=== PATIENT | male | born 1960 | race Caucasian/White ===

== ENCOUNTER → 2017-01-20 | Outpatient (REF) | payer BC | LOC: M LAB REF 12:18 | PROVIDERS: ATTEND Internal Medicine | DX: R73.01 Impaired fasting glucose (principal); B27.90 Infectious mononucleosis, unspecified without complication; E63.9 Nutritional deficiency, unspecified ==

== ENCOUNTER → 2017-03-12 | Outpatient (REF) | payer BC | LOC: M LAB REF 16:40 | PROVIDERS: ATTEND Physician Assistant Medical | DX: J02.9 Acute pharyngitis, unspecified (principal) ==

== ENCOUNTER → 2017-03-16 | Outpatient (REF) | payer BC | LOC: M LAB REF 17:01 | PROVIDERS: ATTEND Nurse Practitioner Family | DX: K12.1 Other forms of stomatitis (principal) ==

== ENCOUNTER → 2017-06-07 | Outpatient (REF) | payer BC | LOC: M LAB REF 13:25 | PROVIDERS: ATTEND Internal Medicine | DX: B27.90 Infectious mononucleosis, unspecified without complication (principal) ==

== ENCOUNTER → 2018-03-02 | Outpatient (REF) | payer BC | LOC: M LAB REF 16:11 | DX: R31.0 Gross hematuria (principal) | CPT/HCPCS: 88108 ==

== ENCOUNTER → 2018-06-08 | Outpatient (REF) | payer BC ==
[2018-06-10 00:06] LABS: EBV VIRAL CAPSID AG IgM <36.0 U/mL (0.0-35.9)
== END ==
LOC: M LAB REF 13:29
DX: B27.90 Infectious mononucleosis, unspecified without complication (principal)

== ENCOUNTER → 2019-06-21 | Outpatient (REF) | payer BC | LOC: M LAB REF 10:48 | PROVIDERS: ATTEND Internal Medicine | DX: R10.84 Generalized abdominal pain (principal) ==

== ENCOUNTER → 2021-07-06 | Outpatient (REF) | payer BC | LOC: M LAB REF 19:43 | PROVIDERS: ATTEND Physician Assistant Medical | DX: R50.9 Fever, unspecified (principal) ==

== ENCOUNTER 2021-07-08 09:10 | Emergency (ER) | payer BC ==
[~2021-07-08] VITALS: Ht 175.3 cm; Wt 78.5 kg
[2021-07-08] MEDS ORDERED: FAMOTIDINE INJ 20MG/2ML VIAL (S0028 PER 1) IVP ONE (11:20)
[2021-07-08] MEDS ORDERED: diphenhydrAMINE 50MG/ML VIAL (J1200) IV ONE (11:20)
[2021-07-08] MEDS ORDERED: NS 1,000 ML IV ONE (11:20)
[2021-07-08] MEDS ORDERED: methylPREDNISolone 125MG 2ML VIAL IV ONE (11:20)
[2021-07-08 11:55] LABS: HEMATOCRIT 44.3 % (42.0-52.0); HEMOGLOBIN 14.7 g/dl (13.5-17.5); MEAN CORPUSCULAR HEMOGLOBIN 29.1 pg (27.0-33.0); MEAN CORPUSCULAR HGB CONC 33.2 g/dl (32.0-36.5); MEAN CORPUSCULAR VOLUME 87.7 fl (80.0-96.0); PLATELET COUNT, AUTOMATED 135 10^3/uL (150-450); RED BLOOD COUNT 5.05 10^6/uL (4.30-6.10); WHITE BLOOD COUNT 3.8 10^3/uL (4.0-10.0)
[2021-07-08 12:13] LABS: ERYTHROCYTE SEDIMENTATION RATE 12 mm/hr (0-20)
[2021-07-08 12:21] LABS: MONO REFLEX EBV COMP NEGATIVE (NEGATIVE)
[2021-07-08 12:26] LABS: ATYPICAL LYMPH 6 % (0-5); BASOPHILS 1 % (0-1); EOSINOPHILS 2 % (0-3); LYMPHOCYTES 19 % (16-44); MONOCYTES 1 % (0-5); NEUTROPHILS 44 % (28-66)
[2021-07-08 12:27] VITALS: BP 129/79
[2021-07-08 12:27] LABS: PLATELET ESTIMATE DECREASED (NORMAL)
[2021-07-08 12:29] LABS: RSV AMPLIFICATION NEGATIVE (NEGATIVE)
[2021-07-08 12:39] LABS: ALT/SGPT 138 U/L (12-78); BILIRUBIN,DIRECT 0.2 MG/DL (0.0-0.2); BILIRUBIN,TOTAL 0.5 MG/DL (0.2-1.0); BLOOD UREA NITROGEN 12 MG/DL (7-18); C REACTIVE PROTEIN QUANTITATIV 9.65 MG/DL (0.00-0.30); CALCIUM LEVEL 8.3 MG/DL (8.8-10.2); CARBON DIOXIDE LEVEL 30 MEQ/L (21-32); CHLORIDE LEVEL 105 MEQ/L (98-107); CREATININE FOR GFR 0.94 MG/DL (0.70-1.30); GLOMERULAR FILTRATION RATE > 60.0 (>49); GLUCOSE, FASTING 102 MG/DL (70-100); POTASSIUM SERUM 4.4 MEQ/L (3.5-5.1); SODIUM LEVEL 138 MEQ/L (136-145); TOTAL PROTEIN 6.1 GM/DL (6.4-8.2)
[2021-07-08] MEDS ORDERED: DOXY1CAP62 PO (13:12)
== END 2021-07-08 13:30 | disposition home or self-care (01) ==
LOC: M ED 09:10
DX: L50.9 Urticaria, unspecified (principal); R50.9 Fever, unspecified; M25.50 Pain in unspecified joint; D69.6 Thrombocytopenia, unspecified; B27.80 Other infectious mononucleosis without complication; Z86.19 Personal history of other infectious and parasitic diseases
CPT/HCPCS: 36415; 80048; 80076; 85025; 85652; 86140; 86308; 86617; 86664; 86665; 86757; 87207; 87631; 87798; 96374; 96375; 99284; J1200; J2930

== ENCOUNTER 2021-07-14 17:02 | Observation (INO) | payer BC ==
[~2021-07-14] VITALS: Ht 175.3 cm; Wt 76.8 kg
[~2021-07-14 17:02] MED LIST: DOXY1CAP62 PO
[2021-07-14] MEDS ORDERED: PRED10TA2 (17:15)
--- NOTE | 2021-07-14 17:46 | REP ---
INDICATION: CHEST PAIN. COMPARISON: Comparison chest x-ray October 30, 2015. TECHNIQUE: Portable upright AP chest radiograph. FINDINGS: The lungs are well inflated and free of infiltrate. Pleural angles are sharp. Heart size is normal. Pulmonary vasculature is not increased. EKG monitoring electrodes overlie the chest. IMPRESSION: No active disease. <Electronically signed by Judson Augustin > 07/14/21 [id number]
[2021-07-14 17:47] LABS: BASO % 0.5 % (0.0-1.0); EOS # 0.1 10^3/uL (0.0-0.5); EOS % 1.7 % (0.0-3.0); HEMATOCRIT 42.2 % (42.0-52.0); HEMOGLOBIN 14.6 g/dl (13.5-17.5); LYMPH # 1.2 10^3/uL (1.5-5.0); LYMPH % 13.7 % (24.0-44.0); MEAN CORPUSCULAR HEMOGLOBIN 29.3 pg (27.0-33.0); MEAN CORPUSCULAR HGB CONC 34.6 g/dl (32.0-36.5); MEAN CORPUSCULAR VOLUME 84.6 fl (80.0-96.0); MONO # 0.5 10^3/uL (0.0-0.8); MONO % 5.4 % (2.0-8.0); NEUTROPHILS # 6.5 10^3/uL (1.5-8.5); NEUTROPHILS % 77.7 % (36.0-66.0); PLATELET COUNT, AUTOMATED 365 10^3/uL (150-450); RED BLOOD COUNT 4.99 10^6/uL (4.30-6.10); WHITE BLOOD COUNT 8.4 10^3/uL (4.0-10.0)
[2021-07-14 18:25] LABS: ALBUMIN 2.8 GM/DL (3.2-5.2); ALT/SGPT 60 U/L (12-78); BILIRUBIN,DIRECT 0.2 MG/DL (0.0-0.2); BILIRUBIN,TOTAL 0.5 MG/DL (0.2-1.0); BLOOD UREA NITROGEN 21 MG/DL (7-18); CALCIUM LEVEL 8.1 MG/DL (8.8-10.2); CARBON DIOXIDE LEVEL 27 MEQ/L (21-32); CHLORIDE LEVEL 101 MEQ/L (98-107); CPK CREATINE PHOSPHOKINASE 25 U/L (39-308); CREATININE FOR GFR 0.81 MG/DL (0.70-1.30); GLOMERULAR FILTRATION RATE > 60.0 (>49); GLUCOSE, FASTING 121 MG/DL (70-100); LIPASE 56 U/L (73-393); NT-PRO BNP 41 PG/ML (<125); POTASSIUM SERUM 4.2 MEQ/L (3.5-5.1); SODIUM LEVEL 135 MEQ/L (136-145); THYROID STIMULATING HORMONE 0.512 uIU/ML (0.358-3.740); TOTAL PROTEIN 6.2 GM/DL (6.4-8.2); TROPONIN I < 0.02 NG/ML (< 0.10)
[2021-07-14] MEDS ORDERED: ASPIRIN 81 MG CHEW TABLET PO ONE (18:40)
[2021-07-14] MEDS ORDERED: ISOVUE-370 76% 100ML VIAL As Ordered ONE (18:46)
[2021-07-14] MEDS: NITROGLYCERIN 0.4 MG SUBL TABLET SL PRN ×3 (19:05→19:40)
[2021-07-14] MEDS ORDERED: METOCLOPRAMIDE INJ 10MG/2ML VIAL (J2765 PER 1) As Ordered ONE (19:17)
[2021-07-14] MEDS ORDERED: METOCLOPRAMIDE INJ 10MG/2ML VIAL (J2765 PER 1) IV ONE (19:20)
[2021-07-14 19:40] VITALS: BP 111/61
--- NOTE | 2021-07-14 20:42 | REPVR ---
PROCEDURE INFORMATION: Exam: CTA Chest With Contrast Exam date and time: 07/14/2021 7:33 PM Age: 61 years old Clinical indication: Shortness of breath; Additional info: Chest pain SOB TECHNIQUE: Imaging protocol: Computed tomographic angiography of the chest with contrast. 3D rendering (Not supervised by radiologist): MIP and/or 3D reconstructed images were created by the technologist. Radiation optimization: All CT scans at this facility use at least one of these dose optimization techniques: automated exposure control; mA and/or kV adjustment per patient size (includes targeted exams where dose is matched to clinical indication); or iterative reconstruction. Contrast material: ISOVUE 370; Contrast volume: 75 ml; Contrast route: INTRAVENOUS (IV); COMPARISON: CR PORTABLE CHEST X-RAY 07/14/2021 5:30 PM FINDINGS: Pulmonary arteries: Normal. No pulmonary emboli. Aorta: Unremarkable. No aortic aneurysm. No aortic dissection. Lungs: Unremarkable. No consolidation. No masses. Pleural spaces: Unremarkable. No pneumothorax. No pleural effusion. Heart: Unremarkable. No cardiomegaly. No pericardial effusion. Lymph nodes: Unremarkable. No enlarged lymph nodes. Bones/joints: Unremarkable. No acute fracture. Soft tissues: Unremarkable. IMPRESSION: No acute findings. Electronically signed by: Jaskaran Salazar On 07/14/2021 20:42:31 PM
--- NOTE | 2021-07-14 20:47 | REPVR ---
PROCEDURE INFORMATION: Exam: CT Head Without Contrast Exam date and time: 07/14/2021 7:33 PM Age: 61 years old Clinical indication: Pain; Headache; Additional info: Acute headache TECHNIQUE: Imaging protocol: Computed tomography of the head without contrast. Radiation optimization: All CT scans at this facility use at least one of these dose optimization techniques: automated exposure control; mA and/or kV adjustment per patient size (includes targeted exams where dose is matched to clinical indication); or iterative reconstruction. COMPARISON: No relevant prior studies available. FINDINGS: Brain: There is no evidence of intracranial bleed. Cerebral ventricles: Normal ventricles. Paranasal sinuses: Clear paranasal sinuses. Mastoid air cells: Clear mastoid air cells. Bones/joints: There is no evidence of fracture. Soft tissues: There is no evidence of soft tissue abnormality. IMPRESSION: Normal appearing CT scan of the brain. Electronically signed by: Garett hC On 07/14/2021 20:47:10 PM
[2021-07-14 21:34] LABS: ERYTHROCYTE SEDIMENTATION RATE 5 mm/hr (0-20)
[2021-07-15 00:14] LABS: CK-MB VALUE MASS < 1.0 NG/ML (<3.6); CPK CREATINE PHOSPHOKINASE 22 U/L (39-308); MB/CK RELATIVE INDEX 4.55 (< OR =4); TROPONIN I < 0.02 NG/ML (< 0.10)
[2021-07-15 01:23] LABS: RSV AMPLIFICATION NEGATIVE (NEGATIVE)
[2021-07-15] MEDS ORDERED: DOXY100T27 PO (01:43)
[2021-07-15] MEDS ORDERED: PRED10TA2 PO (01:43)
[2021-07-15] MEDS ORDERED: HOME MED LIST COMPLETE! XX SCH (01:45)
[2021-07-15] MEDS: ACETAMINOPHEN TAB 650MG DOSE (2X325MG) PO PRN ×2 (02:04→11:26)
[2021-07-15] MEDS ORDERED: VITMTA PO (02:09)
[2021-07-15] MEDS ORDERED: VITA500075 PO (02:09)
[2021-07-15] MEDS ORDERED: [UNRECOGNIZED DRUG - CODE] PO (02:09)
[2021-07-15] MEDS ORDERED: diphenhydrAMINE 50MG/ML VIAL (J1200) IV ONE (02:40)
[2021-07-15] MEDS ORDERED: PROCHLORPERAZINE 10MG/2ML VIAL (J0780 PER 1) IV ONE (02:40)
[2021-07-15 02:45] LABS: BASO # 0.1 10^3/uL (0.0-0.2); BASO % 0.7 % (0.0-1.0); EOS # 0.2 10^3/uL (0.0-0.5); EOS % 2.6 % (0.0-3.0); HEMATOCRIT 42.4 % (42.0-52.0); HEMOGLOBIN 14.2 g/dl (13.5-17.5); LYMPH # 1.6 10^3/uL (1.5-5.0); LYMPH % 22.5 % (24.0-44.0); MEAN CORPUSCULAR HEMOGLOBIN 28.7 pg (27.0-33.0); MEAN CORPUSCULAR HGB CONC 33.5 g/dl (32.0-36.5); MEAN CORPUSCULAR VOLUME 85.7 fl (80.0-96.0); MONO # 0.4 10^3/uL (0.0-0.8); MONO % 6.3 % (2.0-8.0); NEUTROPHILS # 4.6 10^3/uL (1.5-8.5); NEUTROPHILS % 66.6 % (36.0-66.0); PLATELET COUNT, AUTOMATED 338 10^3/uL (150-450); RED BLOOD COUNT 4.95 10^6/uL (4.30-6.10); WHITE BLOOD COUNT 6.9 10^3/uL (4.0-10.0)
[2021-07-15 03:18] LABS: BLOOD UREA NITROGEN 18 MG/DL (7-18); CREATININE FOR GFR 0.85 MG/DL (0.70-1.30); GLUCOSE, FASTING 97 MG/DL (70-100)
[2021-07-15 03:19] LABS: CALCIUM LEVEL 8.4 MG/DL (8.8-10.2); CARBON DIOXIDE LEVEL 32 MEQ/L (21-32); CHLORIDE LEVEL 102 MEQ/L (98-107); GLOMERULAR FILTRATION RATE > 60.0 (>49); MAGNESIUM LEVEL 2.3 MG/DL (1.8-2.4); POTASSIUM SERUM 3.7 MEQ/L (3.5-5.1); SODIUM LEVEL 137 MEQ/L (136-145); TROPONIN I < 0.02 NG/ML (< 0.10)
[2021-07-15 04:10] VITALS: BP 105/71
--- NOTE | 2021-07-15 05:37 | HPEPDOC ---
General Date of Admission 07/15/21 Date of Service: Jul 15, 2021 Chief Complaint The patient is a 61-year-old male admitted with a reason for visit of Atypocal Chest Pain. Source: Patient History of Present Illness Lamont Skaggs is a 61 yo M with reported Significant hx of chronic Swathi- Morse and hdl without medication use, arrives with complaints of chest pain. Patient also arrives to ED with multiple systemic complaints. He appears in no acute distress. Patient reports he has been having full body rash for the past 2 weeks with accompanying headache and feverishness and swollen joints. Patient receiving been tested for Lyme and discharged with empiric doxycycline and steroids. Patient reports that he has been taking the doxycycline for the past 6 days and only took 4 doses of steroids. Patient was considering whether or not he was having some food intolerances and reportedly consider going to regrinder. However, patient reports he felt the need to come to ED after having 2 episodes of chest pain. Patient reports on Monday having an episode of chest pain mid chest with associated shortness of breath at night that lasted until the morning when it resolved spontaneously. Patient reports that he went about his normal business until he awoke today with persistent nausea. Patient then had another episode of chest pain with shortness of breath in passenger seat of car after driving home from clinic today and thus felt he should come to the ED. Throughout this timeframe patient reports that he has had a headache intermittently taking Tylenol with no relief. He reports the headache comes up from the right side of his neck to his forehead. He does admit that he may have "high headaches" when he has sinus pressure. He does not endorse any sinus pressure with this headache. Of note, PCR negative. EKG NSR. Trop 0.02, no leukocytosis,CRP 1.6, ESR 5, TSH WNL. Chest x-ray nonacute. Nonfocal neuro exam. Patient afebrile and normotensive. Patient headache improved post Reglan, but then returned. Patient does endorse some muscular type pain to the right side of his neck. He is able to touch chin to chest. Patient will be admitted for further evaluation management presenting concerns. Home Medications Scheduled Cholecalciferol (Vitamin D3) (Vitamin D3) 125 Mcg Capsule, 125 MCG PO DAILY, (Reported) Doxycycline Monohydrate (Doxycycline Monohydrate) 100 Mg Tablet, 100 MG PO BID, (Reported) STARTED ON 07/08/21 Multivitamins (Thera M Plus Tablet) 1 Each Tablet, 1 TAB PO DAILY, (Reported) Prednisone (Prednisone) 10 Mg Tablet, 10 MG PO TAPER, (Reported) 60MG FOR 3 DAYS, 40MG FOR 3 DAYS, 20MG FOR 3 DAYS, 10MG FOR 3 DAYS: LAST DOSE WAS FIRST DOSE OF 40MG. Vit C/Ascorbate Calcium,Sodium (Vitamin C 500 mg/15 ml Liquid) 500 Mg/15 Ml Liquid, 500 MG PO DAILY, (Reported) Allergies Coded Allergies: No Known Allergies (Unverified , 07/08/21) Past Medical History Medical History chronic swathi morse, hyperlipidemia Surgical History denies Family History Significant Family History: Heart disease Brotherhypertension, other brotherprostate cancer, sisterpolycystic kidney disease and kidney transplant Social History * Smoker: Denies Alcohol: Denies Drugs: denies Recent Travel/Sick Contacts: Denies: Recent travel, Recent sick contacts Pets in the home: Dog(s) Psychosocial History: No pertinent psych hx Lives in [place] with , frequently on [place] and hiking with dog A-FIB/CHADSVASC A-FIB History Current/History of A-Fib/PAF?: No Current PO Anticoag Therapy: No Review of Systems Constitutional: Reports: Chills, Fever, Malaise, Fatigue; Denies: Night Sweats Eyes: Denies: Pain, Vision change ENT: Denies: Head Aches, Ear Pain, Dysphagia Skin: Denies: Rash, Lesions, Breakdown Pulmonary: Denies: Dyspnea, Cough Cardiovascular: Reports: Chest Pain; Denies: Palpitations, Orthopnea, Paroxysmal Noc. Dyspnea, Lt Headedness Gastrointestinal: Reports: Nausea; Denies: Vomiting, Abdominal Pain, Diarrhea Genitourinary: Denies: Dysuria, Frequency, Incontinence, Retention Hematologic: Denies: Bruising, Bleeding Excessively Musculoskeletal: Denies: Neck Pain, Back Pain, Joint Pain, Muscle Pain, Spasms Neurological: Reports: Other Symptoms (CASSIDY); Denies: Weakness, Numbness, Change in speech, Confusion Psych: Reports: Mood Normal; Denies: Depression, Memory Issues Physical Examination General Exam: Positive: Alert, No Acute Distress Eye Exam: Positive: PERRLA, Conjunctiva & lids normal, EOMI; Negative: Sclera icteric ENT Exam: Positive: Atraumatic, Mucous membr. moist/pink, Pharynx Normal Neck Exam: Positive: Supple; Negative: JVD, thyromegaly Chest Exam: Positive: Clear to auscultation, Normal air movement Heart Exam: Positive: Rate Normal, Regular Rhythm, Normal S1, Normal S2; Negative: Murmurs, Rubs Telemetry: Positive: No significant arrhythmia Abdomen Exam: Positive: Normal bowel sounds, Soft; Negative: Tenderness, Hepatospenomegaly Extremity Exam: Positive: Normal pulses; Negative: Clubbing, Cyanosis, Edema Skin Exam: Positive: Other skin issue (ruddiness/ non rased rash on trunk ); Negative: Breakdown, Lesion Neuro Exam: Positive: Normal Gait, Normal Speech, Cranial Nerves 3-12 NL, Reflexes 2+ Psych Exam: Positive: Mental status NL, Mood NL, Oriented x 3 Vital Signs Vital Signs Date Time Temp Pulse Resp B/P (MAP) Pulse Ox O2 Delivery O2 Flow Rate FiO2 07/15/21 04:10 98.7 77 18 105/71 (82) 96 Room Air Laboratory Data Labs 24H Laboratory Tests 2 07/14/21 17:22: Immature Granulocyte % (Auto) 1.0, Neutrophils (%) (Auto) 77.7H, Lymphocytes (%) (Auto) 13.7L, Monocytes (%) (Auto) 5.4, Eosinophils (%) (Auto) 1.7, Basophils (%) (Auto) 0.5, Neutrophils # (Auto) 6.5, Lymphocytes # (Auto) 1.2L, Monocytes # (Auto) 0.5, Eosinophils # (Auto) 0.1, Basophils # (Auto) 0.0, Nucleated Red Blood Cells % (auto) 0.0, Erythrocyte Sedimentation Rate 5, Anion Gap 7L, Glomerular Filtration Rate > 60.0, Calcium Level 8.1L, Total Bilirubin 0.5, Direct Bilirubin 0.2, Aspartate Amino Transf (AST/SGOT) 31, Alanine Aminotransferase (ALT/SGPT) 60, Alkaline Phosphatase 70, Total Creatine Kinase 25L, Creatine Kinase MB 1.0, Creatine Kinase MB Relative Index 4.00, Troponin I < 0.02, C-Reactive Protein, Quantitative 1.60H, ZH-Vmg-Z-Type Natriuretic Peptide 41, Total Protein 6.2L, Albumin 2.8L, Albumin/Globulin Ratio 0.8, Lipase 56L, Thyroid Stimulating Hormone (TSH) 0.512 8/25/21 23:19: Total Creatine Kinase 22L, Creatine Kinase MB < 1.0, Creatine Kinase MB Relative Index 4.55H, Troponin I < 0.02 07/15/21 00:09: Coronavirus (COVID-19)(PCR) NEGATIVE, Influenza Type A (RT-PCR) NEGATIVE, Influenza Type B (RT-PCR) NEGATIVE, Respiratory Syncytial Virus (PCR) NEGATIVE 07/15/21 02:38: Anion Gap 3L, Glomerular Filtration Rate > 60.0, Calcium Level 8.4L, Troponin I < 0.02, Magnesium Level 2.3 07/15/21 02:39: Immature Granulocyte % (Auto) 1.3, Neutrophils (%) (Auto) 66.6H, Lymphocytes (%) (Auto) 22.5L, Monocytes (%) (Auto) 6.3, Eosinophils (%) (Auto) 2.6, Basophils (%) (Auto) 0.7, Neutrophils # (Auto) 4.6, Lymphocytes # (Auto) 1.6, Monocytes # (Auto) 0.4, Eosinophils # (Auto) 0.2, Basophils # (Auto) 0.1, Nucleated Red Blood Cells % (auto) 0.0 CBC/BMP Laboratory Tests 07/14/21 17:22 07/15/21 02:38 07/15/21 02:39 Assessment/Plan 1. Atypical chest pain: In setting of systemic complaints. -Monitor patient, telemetry, trend troponin -Repeat EKG -A.m. labs -Consider differential. Lyme titer pending. -Anticipate patient will require stress test outpatient -Consider echo today if BnP or troponin elevated 2. Headache: Relative to systemic complaints versus migraine. Pt received reglan in ED with some relief, but increased. - Compazine/ benadryl trial -We will also offer sinus decongestant as patient has reported some headache relationship to sinusitis in the past. - Pt with some R sided neck discomfort, he does endorse possible neck strain with pressure washing his boat last week, could be related to CASSIDY or not. We will offer Lidoderm patch for muscle relaxation. Also K pad. -Consider further neurologic work-up although nonfocal neuro exam and lower suspicion -Consider ID versus neurology consult for w/u with LP 3. Rash and joint pain: Patient reports rash was pruritic and raised at first - traveling from bilateral lower extremities upwards towards trunk and resolving 2 flat red/pinkness. No bull's-eye rash or insect bite appreciated -Lyme titer pending. -Given patient's risk factors for Lyme disease, will continue empiric coverage with doxycycline. -We will hold on steroids -CRP elevated but ESR is not, consider differentials. -Consider ID consultation versus rheumatology. 4. Hyperlipidemia: Check lipid panel. Patient does not take any statins. DVT: Heparin CODE STATUS: Full Disposition planning: Anticipate 1 night observation for chest pain and follow- up outpatient pending patient response. Plan / VTE VTE Prophylaxis Ordered?: Yes ILAN JIMENES NP Jul 15, 2021 05:05
[2021-07-15 06:00] VITALS: BP 119/69
[2021-07-15] MEDS ORDERED: HEPARIN SOD (PORCINE) 5000UNITS/ML 1ML VIAL/SYRINGE SC SCH (06:00)
[2021-07-15] MEDS ORDERED: VITAMIN D 1,000 INTERNATIONAL UNITS TABLET PO SCH (09:00)
[2021-07-15] MEDS ORDERED: DOXYCYCLINE HYCLATE 100MG TABLET PO SCH (09:00)
[2021-07-15] MEDS ORDERED: LIDOCAINE 5% (LIDODERM) PATCH TD PRN (09:00)
[2021-07-15] MEDS ORDERED: ASCORBIC ACID 500 MG TAB PO SCH (09:00)
[2021-07-15 09:44] LABS: CHOLESTEROL RISK RATIO 4.47 (<5)
[2021-07-15] MEDS ORDERED: MULTIVITAMINS/MINERALS THERAP 1 TAB PO SCH (13:00)
[2021-07-15 14:00] VITALS: BP 112/68
[2021-07-15] MEDS ORDERED: OMEP40CA4 PO (15:07)
[2021-07-15] MEDS ORDERED: LIDO5TD TD (15:55)
--- NOTE | 2021-07-15 18:50 | ECGEPIP ---
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
--- NOTE | 2021-07-15 18:54 | ECGEPIP ---
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
[2021-07-15] MEDS ORDERED: **NOTE PATIENT COMMENT** MISC XX SCH (21:00)
--- NOTE | 2021-07-15 23:01 | DS.PDOC ---
Discharge Summary General Date of Admission Jul 14, 2021 at 17:03 Date of Discharge Jul 15, 2021 Discharge Summary PROCEDURES PERFORMED DURING STAY: None ADMITTING DIAGNOSES: 1. Atypical chest pain 2. Bug bite (mosquito) 3. Hyperlipidemia DISCHARGE DIAGNOSES: 1. Atypical chest pain ruled out ACS 2. Bug bite (mosquito) 3. Hyperlipidemia COMPLICATIONS/CHIEF COMPLAINT: Atypical Chest Pain. HISTORY OF PRESENT ILLNESS: Copied from admitting provider's H&P " Lamont Skaggs is a 61 yo M with reported Significant hx of chronic Swathi- Torres and hdl without medication use, arrives with complaints of chest pain. Patient also arrives to ED with multiple systemic complaints. He appears in no acute distress. Patient reports he has been having full body rash for the past 2 weeks with accompanying headache and feverishness and swollen joints. Patient receiving been tested for Lyme and discharged with empiric doxycycline and steroids. Patient reports that he has been taking the doxycycline for the past 6 days and only took 4 doses of steroids. Patient was considering whether or not he was having some food intolerances and reportedly consider going to plaster tender. However, patient reports he felt the need to come to ED after having 2 episodes of chest pain. Patient reports on Monday having an episode of chest pain mid chest with associated shortness of breath at night that lasted until the morning when it resolved spontaneously. Patient reports that he went about his normal business until he awoke today with persistent nausea. Patient then had another episode of chest pain with shortness of breath in passenger seat of car after driving home from clinic today and thus felt he should come to the ED. Throughout this timeframe patient reports that he has had a headache intermittently taking Tylenol with no relief. He reports the headache comes up from the right side of his neck to his forehead. He does admit that he may have "high headaches" when he has sinus pressure. He does not endorse any sinus pressure with this headache. Of note, PCR negative. EKG NSR. Trop 0.02, no leukocytosis,CRP 1.6, ESR 5, TSH WNL. Chest x-ray nonacute. Nonfocal neuro exam. Patient afebrile and normotensive. Patient headache improved post Reglan, but then returned. Patient does endorse some muscular type pain to the right side of his neck. He is able to touch chin to chest. Patient will be admitted for further evaluation management presenting concerns. " HOSPITAL COURSE: During hospitalization, he had a total of 4 negative troponin and telemetry was negative for arrhythmia. This morning, he was feeling better. Tells me that his chest pain had resolved with sublingual nitro. He remembered about 4 days ago, he had a similar event that he though was indigestion. He had a little bit of banana and water and it got better. He had a history of GERD in the past and was considering that he may still have silent heart burn. He was interested in restarting PPI. It is possible that he may have been having esophageal spasms which was made better by sublingual nitro. Prior to discharge, an echocardiogram was obtained. Otherwise, he was concerned that he had been bitten by multiple mosquitoes, and he requested testing for malaria and [place]. In addition, he had neck pain that was made better with lidocaine patch. Patient requested lidocaine patch to be sent to pharmacy. Otherwise today, he felt well and felt ready for home. DISCHARGE MEDICATIONS: Please see below. ALLERGIES: Please see below. PHYSICAL EXAMINATION ON DISCHARGE: VITAL SIGNS: Please see below. GENERAL: Comfortable, in no apparent distress HEENT: Head normocephalic, atraumatic NECK: Supple CARDIOVASCULAR EXAMINATION: Regular rate and rhythm RESPIRATORY EXAMINATION: Lungs clear to auscultation bilaterally ABDOMINAL EXAMINATION: Soft, non-tender, normal bowel sounds EXTREMITIES: No pitting edema bilaterally NEUROLOGICAL EXAMINATION: CN 3-12 grossly intact PSYCHIATRIC EXAMINATION: Normal mood and affect LABORATORY DATA: Please see below. IMAGING: Radiologist interpretation CT angio chest No acute findings. CT head without contrast Normal appearing CT scan of the brain. PROGNOSIS: Good ACTIVITY: As tolerated. DIET: As tolerated DISCHARGE PLAN: Home DISPOSITION: 01 Home, Self-Care. DISCHARGE INSTRUCTIONS: 1. Follow up with PCP in 1 week ITEMS TO FOLLOWUP ON ON OUTPATIENT: 1. Echocardiogram results. Malaria and [place] results DISCHARGE CONDITION: Stable. Total time spent on discharge planning, discharge summary, and medication reconciliation: 30 minutes Vital Signs/I&Os Vital Signs Date Time Temp Pulse Resp B/P (MAP) Pulse Ox O2 Delivery O2 Flow Rate FiO2 07/15/21 14:00 97.8 93 16 112/68 (83) 95 Room Air I&O- Last 24 Hours up to 6 AM 07/15/21 06:00 Output Total 300 ml Balance -300 ml Laboratory Data Labs 24H Laboratory Tests 2 07/14/21 23:19: Total Creatine Kinase 22L, Creatine Kinase MB < 1.0, Creatine Kinase MB Relative Index 4.55H, Troponin I < 0.02 07/15/21 00:09: Coronavirus (COVID-19)(PCR) NEGATIVE, Influenza Type A (RT-PCR) NEGATIVE, Influenza Type B (RT-PCR) NEGATIVE, Respiratory Syncytial Virus (PCR) NEGATIVE 07/15/21 02:38: Troponin I < 0.02, Anion Gap 3L, Glomerular Filtration Rate > 60.0, Calcium Level 8.4L, Magnesium Level 2.3 07/15/21 02:39: Immature Granulocyte % (Auto) 1.3, Neutrophils (%) (Auto) 66.6H, Lymphocytes (%) (Auto) 22.5L, Monocytes (%) (Auto) 6.3, Eosinophils (%) (Auto) 2.6, Basophils (%) (Auto) 0.7, Neutrophils # (Auto) 4.6, Lymphocytes # (Auto) 1.6, Monocytes # (Auto) 0.4, Eosinophils # (Auto) 0.2, Basophils # (Auto) 0.1, Nucleated Red Blood Cells % (auto) 0.0 07/15/21 09:02: Triglycerides Level 142, Total Cholesterol 152, LDL Cholesterol 90, Non-HDL Cholesterol (LDL + VLDL) 118, Total HDL Cholesterol 34L, Cholesterol/HDL Ratio 4.470 07/15/21 12:23: Troponin I < 0.02 07/15/21 13:45: CBC/BMP Laboratory Tests 07/15/21 02:38 07/15/21 02:39 Microbiology Microbiology 07/15/21 Malaria Smear (DULCE) - Preliminary, Resulted Discharge Medications Scheduled Cholecalciferol (Vitamin D3) (Vitamin D3) 125 Mcg Capsule, 125 MCG PO DAILY, (Reported) Doxycycline Monohydrate (Doxycycline Monohydrate) 100 Mg Tablet, 100 MG PO BID, (Reported) STARTED ON 07/08/21 Multivitamins (Thera M Plus Tablet) 1 Each Tablet, 1 TAB PO DAILY, (Reported) Omeprazole (Omeprazole) 40 Mg Capsule.dr, 40 MG PO DAILY Prednisone (Prednisone) 10 Mg Tablet, 10 MG PO TAPER, (Reported) 60MG FOR 3 DAYS, 40MG FOR 3 DAYS, 20MG FOR 3 DAYS, 10MG FOR 3 DAYS: LAST DOSE WAS FIRST DOSE OF 40MG. Vit C/Ascorbate Calcium,Sodium (Vitamin C 500 mg/15 ml Liquid) 500 Mg/15 Ml Liquid, 500 MG PO DAILY, (Reported) Scheduled PRN Lidocaine (Lidocaine) 5% Adh..patch, 1 PATCH TD DAILY PRN for neck pain Allergies Coded Allergies: No Known Allergies (Unverified , 07/08/21) INGRID BAUTISTA DO Jul 15, 2021 23:01
--- NOTE | 2021-07-16 08:43 | ECGEPIP ---
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
[2021-07-16 17:07] LABS: ANTINUCLEAR ANTIBODIES DIRECT Negative (Negative)
--- NOTE | 2021-07-17 13:35 | ECHO ---
ECHOCARDIOGRAM DATE OF PROCEDURE: 07/15/2021 Age: Gender: Male Height: 175 cm Weight: 77 kg REFERRING PHYSICIAN: Archie Mena M.D. INDICATION: Chest pain, unspecified. MEASUREMENTS: 2D Measurements: Aortic annulus 2.0 cm Left atrial volume index 10 Doppler Measurements: No aortic stenosis No aortic regurgitation Aortic valve velocity 159 cm/sec LVOT velocity 98.7 cm/sec LVOT VTI 17.0 cm No mitral regurgitation No mitral stenosis Mitral E velocity 50.3 cm/sec Mitral A velocity 52.7 cm/sec Mitral deceleration time 211 msec No tricuspid regurgitation No pulmonic regurgitation Pulmonary acceleration time 95 msec MITRAL ANNULAR TISSUE DOPPLER: E prime septal 7.7 cm/sec E prime lateral 11.3 cm/sec DESCRIPTION: Rhythm was sinus. Image quality was adequate. This was a 2D, M-mode, color flow Doppler and pulse wave Doppler examination and included mitral annular tissue Doppler. CONCLUSIONS: 1. Small circumferential pericardial effusion. No diastolic chamber collapse. 2. Normal left ventricle internal dimensions and wall thickness. Normal regional left ventricular (LV) wall motion and wall thickening. Normal LV systolic function. Left ventricular ejection fraction (LVEF) 50% by visual estimate. Normal LV diastolic function. 3. Presence of right pleural effusion. 4. Suggestion of mild elevation of pulmonary artery systolic pressure. 5. Otherwise normal appearing echocardiogram findings.
[2021-07-19 17:09] LABS: WEST NILE VIRUS ANTIBODY IgG Negative (Negative); WEST NILE VIRUS ANTIBODY IgM Negative (Negative)
== END 2021-07-15 16:42 | disposition home or self-care (01) ==
LOC: M ED 17:02 → M ED INP 17:03 → M MSPAV 07-15 04:10
PROVIDERS: ADMIT Family Medicine; ATTEND Internal Medicine
DX: R07.89 Other chest pain (principal); W57.XXXA Bitten or stung by nonvenomous insect and other nonvenomous arthropods, initial encounter; Y92.89 Other specified places as the place of occurrence of the external cause; E78.5 Hyperlipidemia, unspecified; R51.9 Headache, unspecified; R21 Rash and other nonspecific skin eruption; M25.50 Pain in unspecified joint; R11.0 Nausea; R06.02 Shortness of breath; B27.00 Gammaherpesviral mononucleosis without complication
CPT/HCPCS: 36415; 70450; 71045; 71275; 80048; 80061; 80076; 82550; 82553; 83690; 83735; 83880; 84443; 84484; 85025; 85652; 86038; 86140; 86788; 86789; 87207; 87631; 93005; 93306; 96372; 96374; 96375; 99285; J0780; J1200; J1644; J2765; Q9967

== ENCOUNTER → 2021-07-19 | Outpatient (CLI) | payer BC ==
[~2021-07-19] MED LIST changes: +DOXY-443 PO; +DOXY100T27 PO; -DOXY1CAP62 PO; +LIDO5TD TD; +OMEP40CA4 PO; +PRED10TA2; +PRED10TA2 PO; +VITA500075 PO; +VITMTA PO; +[UNRECOGNIZED DRUG - CODE] PO
[2021-07-19 14:59] LABS: BASO # 0.1 10^3/uL (0.0-0.2); BASO % 0.8 % (0.0-1.0); EOS # 0.5 10^3/uL (0.0-0.5); EOS % 4.9 % (0.0-3.0); HEMATOCRIT 45.1 % (42.0-52.0); HEMOGLOBIN 15.2 g/dl (13.5-17.5); LYMPH # 1.6 10^3/uL (1.5-5.0); LYMPH % 17.9 % (24.0-44.0); MEAN CORPUSCULAR HEMOGLOBIN 29.1 pg (27.0-33.0); MEAN CORPUSCULAR HGB CONC 33.7 g/dl (32.0-36.5); MEAN CORPUSCULAR VOLUME 86.2 fl (80.0-96.0); MONO # 0.5 10^3/uL (0.0-0.8); MONO % 5.6 % (2.0-8.0); NEUTROPHILS # 6.4 10^3/uL (1.5-8.5); NEUTROPHILS % 69.8 % (36.0-66.0); PLATELET COUNT, AUTOMATED 356 10^3/uL (150-450); RED BLOOD COUNT 5.23 10^6/uL (4.30-6.10); WHITE BLOOD COUNT 9.1 10^3/uL (4.0-10.0)
[2021-07-19 15:43] LABS: ALBUMIN 3.1 GM/DL (3.2-5.2); ALT/SGPT 53 U/L (12-78); BILIRUBIN,TOTAL 0.5 MG/DL (0.2-1.0); BLOOD UREA NITROGEN 17 MG/DL (7-18); CALCIUM LEVEL 8.7 MG/DL (8.8-10.2); CARBON DIOXIDE LEVEL 28 MEQ/L (21-32); CHLORIDE LEVEL 99 MEQ/L (98-107); CORTISOL BASELINE 20.9 UG/DL (4.3-22.4); CPK CREATINE PHOSPHOKINASE 19 U/L (39-308); FERRITIN 674 NG/ML (26-388); FREE T4 0.99 NG/DL (0.76-1.46); GLOMERULAR FILTRATION RATE > 60.0 (>49); GLUCOSE, FASTING 89 MG/DL (70-100); IMMUNOGLOBULIN G 1030 MG/DL (681-1648); IRON (FE) 35 UG/DL (65-175); LDH LACTATE DEHYDROGENASE 266 U/L (87-241); PERCENT SATURATION 13.2 % (19.7-50.0); POTASSIUM SERUM 4.1 MEQ/L (3.5-5.1); SODIUM LEVEL 134 MEQ/L (136-145); THYROGLOBULIN ANTIBODY < 15.0 U/ML (<60.0); THYROID PEROXIDASE ANTIBODY 29.3 U/ML (<60.0); TOTAL 25(OH) VITAMIN D 63.1 NG/ML (30.0-100.0); TOTAL IRON BINDING CAPACITY 265 UG/DL (250-450); TOTAL PROTEIN 6.6 GM/DL (6.4-8.2)
[2021-07-19 15:59] LABS: VITAMIN B12 LEVEL 1272 PG/ML (247-911)
[2021-07-28 16:09] LABS: ADRENOCORTICOTROPHIC HORMONE 18.3 pg/mL (7.2-63.3); ANTINUCLEAR ANTIBODIES DIRECT Negative (Negative); B. HENSELAE IgG (CAT SCRATCH) Negative titer (Neg:<1:320); B. HENSELAE IgM (CAT SCRATCH) Negative titer (Neg:<1:100); B. QUINTANA IgG (CAT SCRATCH) Negative titer (Neg:<1:320); B. QUINTANA IgM (CAT SCRATCH) Negative titer (Neg:<1:100); BABESIA MICROTI PCR Negative (Negative); CHLAMYDIA PNEUMONIAE IgM <1:10 (Neg:<1:10); COENZYME Q10 TOTAL 0.46 ug/mL (0.37-2.20); COMPLEMENT C4A (FUTHAN) 761.2 ng/mL (0.0-650.0); DEHYDROEPIANDROSTERONE UNCONJ 42 ng/dL (31-701); E CHAFFEENSIS IgG TITER Negative (Neg:<1:64); E CHAFFEENSIS IgM TITER Negative (Neg:<1:20); EBV VIRAL CAPSID AG IgM <36.0 U/mL (0.0-35.9); G6PD2 5.07 x10E6/uL (4.14-5.80); HISTAMINE PLASMA 2.22 ng/mL (<1.00); HUMAN GRANULCYTIC EHRLIC IgG Negative (Neg:<1:64); HUMAN GRANULCYTIC EHRLIC IgM Negative (Neg:<1:20); IgG SERUM (part of Subclasses) 1005 mg/dL (603-1613); IgG Subclass 1 463 mg/dL (248-810); IgG Subclass 2 366 mg/dL (130-555); IgG Subclass 3 15 mg/dL (15-102); IgG Subclass 4 42 mg/dL (2-96); Lyme Disease IgG/IgM Antibodie <0.91 ISR (0.00-0.90); Lyme Disease IgM Ab Quantitati <0.80 index (0.00-0.79); MYCOPLASMA PNEUMONIAE IgG 296 U/mL (0-99); MYCOPLASMA PNEUMONIAE IgM <770 U/mL (0-769); NICOTINIC ACID <5.0 ng/mL (0.0-5.0); RMSFIGG1 Negative (Negative); ROCKY MTN SPOTTED FEVER IgM 0.21 index (0.00-0.89); VITAMIN B1 LEVEL WHOLE BLOOD 160.4 nmol/L (66.5-200.0); VITAMIN B2 (RIBOFLAVIN) 333 ug/L (137-370); VITAMIN B6,PYRIDOXAL PHOSPHATE 28.8 ug/L (5.3-46.7); WEST NILE VIRUS ANTIBODY IgG Negative (Negative); WEST NILE VIRUS ANTIBODY IgM Negative (Negative)
== END ==
LOC: M LAB 13:33
PROVIDERS: ATTEND Physician Assistant Medical
DX: R79.82 Elevated C-reactive protein (CRP) (principal)

== ENCOUNTER → 2021-07-29 | Outpatient (REF) | payer BC ==
[~2021-07-29] MED LIST changes: -DOXY-443 PO; +DOXY1CAP62 PO
[2021-07-29 13:59] LABS: C REACTIVE PROTEIN QUANTITATIV 0.49 MG/DL (0.00-0.30); RHEUMATOID FACTOR QUANT < 10.0 IU/ML (<15.0)
[2021-07-31 00:07] LABS: ANTINUCLEAR ANTIBODIES DIRECT Negative (Negative); CYCLIC CITRULLINATED PEPTIDE 6 units (0-19)
== END ==
LOC: M LAB REF 11:35
PROVIDERS: ATTEND Internal Medicine
DX: M13.0 Polyarthritis, unspecified (principal)

== ENCOUNTER → 2021-08-09 | Outpatient (CLI) | payer BC ==
[~2021-08-09] MED LIST changes: +GASTROGRAFIN SOLUTION 30ML (Q9963) As Ordered ONE; +ISOVUE-370 76% 100ML VIAL As Ordered ONE
--- NOTE | 2021-08-10 09:36 | REP ---
INDICATION: FEVER, MALAISE. COMPARISON: None. TECHNIQUE: Oral contrast was administered. CT abdomen performed without IV contrast. CT abdomen and pelvis performed with the intravenous administration of 100 cc of Isovue 370. Sagittal and coronal reconstruction images are performed. FINDINGS: Lung bases: Unremarkable. Liver: 2 subcentimeter hypodensities in the liver most consistent with cysts. Gallbladder: Unremarkable. Spleen: Normal. Adrenals: Normal. Pancreas: Normal. Kidneys: Normal. Small and large bowel: Unremarkable. Free fluid: None. Abdominal aorta: No aneurysm or dissection. Adenopathy: None. Appendix: Not inflamed. Osseous structures: There are mild degenerative changes of the spine without compression deformity. Pelvis: No mass. IMPRESSION: There are 2 subcentimeter hypodensities in the liver most consistent with cysts. Otherwise unremarkable CT abdomen and pelvis. <Electronically signed by Mario Schulz > 08/10/21 [id number]
== END ==
LOC: M RAD 16:15
PROVIDERS: ATTEND Internal Medicine
DX: R50.9 Fever, unspecified (principal)
CPT/HCPCS: 74178; Q9963; Q9967

== ENCOUNTER → 2022-04-20 | Outpatient (CLI) | payer BC ==
[~2022-04-20] MED LIST changes: +DOXY-443 PO; -DOXY1CAP62 PO; -GASTROGRAFIN SOLUTION 30ML (Q9963) As Ordered ONE; -ISOVUE-370 76% 100ML VIAL As Ordered ONE
== END ==
LOC: M SLEEP 20:00
PROVIDERS: ATTEND Nurse Practitioner Family
DX: G47.33 Obstructive sleep apnea (adult) (pediatric) (principal)

== ENCOUNTER → 2023-07-05 | Outpatient (CLI) | payer BC | LOC: M WUC 15:09 | PROVIDERS: ATTEND Student in an Organized Health Care Education/Training Program | DX: R05.9 Cough, unspecified (principal) ==

== ENCOUNTER → 2023-08-25 | Outpatient (CLI) | payer BC ==
[~2023-08-25] MED LIST changes: +GASTROGRAFIN SOLUTION 30ML As Ordered ONE; +ISOVUE-370 76% 100ML VIAL As Ordered ONE
== END ==
LOC: M RAD 08:08
PROVIDERS: ATTEND Internal Medicine
DX: K76.9 Liver disease, unspecified (principal); K90.3 Pancreatic steatorrhea; N28.1 Cyst of kidney, acquired; N43.3 Hydrocele, unspecified; R10.32 Left lower quadrant pain
CPT/HCPCS: 74177; Q9963; Q9967

== ENCOUNTER 2023-08-30 09:27 | Day surgery (SDC) | payer BC ==
[~2023-08-30] VITALS: Ht 175.3 cm; Wt 74.8 kg
[~2023-08-30 09:27] MED LIST changes: -GASTROGRAFIN SOLUTION 30ML As Ordered ONE; -ISOVUE-370 76% 100ML VIAL As Ordered ONE; +NS 1,000 ML IV ONE
[2023-08-30 11:20] VITALS: BP 106/63; O2SAT 96
== END 2023-08-30 11:24 | disposition home or self-care (01) ==
LOC: M OPP 09:27
PROVIDERS: ATTEND Internal Medicine Gastroenterology
DX: Z12.11 Encounter for screening for malignant neoplasm of colon (principal); Z80.0 Family history of malignant neoplasm of digestive organs; K64.0 First degree hemorrhoids; G47.30 Sleep apnea, unspecified; Z91.89 Other specified personal risk factors, not elsewhere classified